=== PATIENT | female | born 1960 | race African-American/Black ===

== ENCOUNTER 2018-03-02 20:30 | Inpatient (IN) | payer OTHER ==
[~2018-03-02] VITALS: Ht 157.5 cm; Wt 73.9 kg
[~2018-03-02 20:30] MED LIST: AMLO10TA80 PO; LINA1TAB PO; LISI40TA4 PO
[2018-03-02 23:05] LABS: BASOPHILS % 0.5 % (0.0-2.0); EOSINOPHILS % 1.6 % (0.0-5.0); HEMATOCRIT. 41.4 % (36.0-48.0); HEMOGLOBIN. 14.1 g/dL (12.0-16.0); LYMPHOCYTES % 41.6 % (20.0-50.0); MEAN CORPUSCULAR HEMOGLOBIN 30.2 pg (28.0-32.0); MEAN CORPUSCULAR VOLUME 88.6 fL (81.0-99.0); MEAN PLATELET VOLUME 9.5 fl (7.4-10.4); MONOCYTES % 10.2 % (2.0-8.0); NEUTROPHILS % 46.1 % (40.0-76.0); PLATELET 354 x1000/uL (130-400); RED BLOOD CELL COUNT 4.67 mill/uL (4.2-5.4); RED CELL DISTRIBUTION WIDTH 13.2 % (11.6-14.6)
[2018-03-02] MEDS ORDERED: ASPIRIN 325MG TABLET PO ONE (23:30)
[2018-03-02 23:41] LABS: CLARITY URINE CLEAR (CLEAR); COLOR URINE YELLOW (YELLOW); KETONES URINE NEGATIVE (NEGATIVE); LEUKOCYTE ESTERASE URINE TRACE (NEGATIVE); NITRITE URINE NEGATIVE (NEGATIVE); OCCULT BLOOD URINE NEGATIVE (NEGATIVE); PH URINE 7.5 (4.5-8.0); PROTEIN URINE NEGATIVE (NEGATIVE); SPECIFIC GRAVITY URINE 1.014 (1.005-1.030)
[2018-03-03] VITALS (7 sets, daily range): BP systolic 117–146; BP diastolic 76–92
[2018-03-03 00:05] LABS: *BENZODIAZEPINES SCREEN URINE NEGATIVE (NEGATIVE)
[2018-03-03 00:06] LABS: *COCAINE SCREEN URINE NEGATIVE (NEGATIVE)
[2018-03-03 00:07] LABS: METHADONE URINE SCREEN NEGATIVE (NEGATIVE); OPIATES URINE SCREEN NEGATIVE (NEGATIVE); PHENCYCLIDINE URINE SCREEN NEGATIVE (NEGATIVE)
[2018-03-03 00:09] LABS: CANNABINOID URINE SCREEN NEGATIVE (NEGATIVE)
[2018-03-03 00:53] LABS: CHLORIDE 110 mEq/L (98-107)
[2018-03-03 00:55] LABS: ETHANOL BLOOD < 10 mg/dL
[2018-03-03] MEDS ORDERED: ACETAMINOPHEN 650MG/20.3ML UDC PO ONE (01:15)
[2018-03-03 01:39] LABS: *AMPHETAMINES SCREEN URINE NEGATIVE (NEGATIVE); *BARBITURATES SCREEN URINE NEGATIVE (NEGATIVE)
[2018-03-03] MEDS ORDERED: IPRATROPIUM/ALBUTEROL 0.5-3(2.5)MG/3ML NEB INH PRN (14:00)
[2018-03-03] MEDS ORDERED: MAGNESIUM/ALUMINUM HYDROXIDE/SIMETHICONE 30ML UDC PO PRN (14:00)
[2018-03-03] MEDS ORDERED: ENOXAPARIN 40MG/0.4ML SYR SUBCUT SCH (14:00)
[2018-03-03] MEDS ORDERED: HYDROCODONE/ACETAMINOPHEN 5/325MG TABLET PO PRN (14:00)
[2018-03-03] MEDS ORDERED: ONDANSETRON HCL 4MG/2ML VIAL IV PRN (14:00)
[2018-03-03] MEDS ORDERED: DIPHENHYDRAMINE 50MG/ML VIAL IV PRN (14:00)
[2018-03-03] MEDS ORDERED: NA PHOS,M-B/NA PHOS,DI-BA ENEMA 118ML PR PRN (14:00)
[2018-03-03] MEDS ORDERED: ACETAMINOPHEN 650MG SUPP PR PRN (14:00)
[2018-03-03] MEDS ORDERED: CLONIDINE 0.1MG TABLET PO PRN (14:00)
[2018-03-03] MEDS ORDERED: AMLODIPINE 10MG TABLET PO SCH (14:30)
[2018-03-03] MEDS ORDERED: DEXTROSE 50% WATER 50ML SYRINGE IV PRN (14:30)
[2018-03-03] MEDS: ACETAMINOPHEN 325MG TABLET PO PRN ×2 (15:04→19:55)
[2018-03-03 16:18] LABS: HEMOGLOBIN 13.3 g/dL (12.0-16.0); MEAN CORPUSCULAR HEMOGLOBIN 30.5 pg (28.0-32.0); MEAN CORPUSCULAR VOLUME 87.1 fL (81.0-99.0); PLATELET 315 x1000/uL (130-400); RED BLOOD CELL COUNT 4.37 mill/uL (4.2-5.4); RED CELL DISTRIBUTION WIDTH 12.7 % (11.6-14.6)
[2018-03-03 16:22] LABS: CHLORIDE 108 mEq/L (98-107)
[2018-03-03 16:26] LABS: D-DIMER 0.37 mg/L FEU (<0.50); INR 1.1; PROTHROMBIN TIME 10.6 sec (9.1-11.1)
[2018-03-03 16:30] LABS: LDL CHOLESTEROL 112 mg/dL (5-100)
[2018-03-03 16:31] LABS: CREATINE KINASE 58 IU/L (26-192); HDL CHOLESTEROL 82 mg/dL (40-59)
[2018-03-03 16:34] LABS: CREATINE KINASE MB FRACTION < 1.0 ng/mL (0.5-3.6)
[2018-03-03] MEDS ORDERED: BLOOD SUGAR DIAGNOSTIC STRIP TEST SCH (17:40)
[2018-03-03] MEDS ORDERED: INSULIN LISPRO 100 UNITS/ML SUBCUT SCH (18:10)
[2018-03-04] MEDS ORDERED: ASPIRIN 81MG EC TABLET PO SCH (09:00)
== END 2018-03-03 20:35 | disposition home or self-care (01) | DRG 305 ==
LOC: ER 20:30 → 7WST 03-03 01:19 → ENRESERV 03-03 07:24
PROVIDERS: ADMIT Internal Medicine; ATTEND Internal Medicine
DX: I16.9 Hypertensive crisis, unspecified (principal); E11.9 Type 2 diabetes mellitus without complications; E78.5 Hyperlipidemia, unspecified; I10 Essential (primary) hypertension; Z96.659 Presence of unspecified artificial knee joint; Z79.899 Other long term (current) drug therapy
CPT/HCPCS: 36415; 70450; 71045; 80048; 80053; 80061; 80305; 81003; 82550; 82553; 82962; 83036; 83880; 84443; 84484; 85025; 85027; 85379; 85610; 93005; 93306; 93880; 93970; 99285; G0482; J1650

== ENCOUNTER 2018-09-24 13:42 | Emergency (ER) | payer BC, OTHER ==
[~2018-09-24] VITALS: Ht 157.5 cm; Wt 72.0 kg
[2018-09-24] MEDS ORDERED: FLUORESCEIN SODIUM 1MG/STRIP OP ONE (22:00)
[2018-09-24] MEDS ORDERED: TETRACAINE 0.5% OPHTH DROPS 4ML OP ONE (22:00)
[2018-09-24] MEDS: DIPHENHYDRAMINE 50MG/ML VIAL IV ONE ×3 (22:15→23:08)
[2018-09-24] MEDS ORDERED: PROCHLORPERAZINE 10MG/2ML VIAL IV ONE (22:15)
[2018-09-24 22:24] LABS: CLARITY URINE CLEAR (CLEAR); COLOR URINE YELLOW (YELLOW); KETONES URINE 1+ (NEGATIVE); LEUKOCYTE ESTERASE URINE NEGATIVE (NEGATIVE); NITRITE URINE NEGATIVE (NEGATIVE); OCCULT BLOOD URINE NEGATIVE (NEGATIVE); PH URINE 6.5 (4.5-8.0); PROTEIN URINE NEGATIVE (NEGATIVE); SPECIFIC GRAVITY URINE 1.013 (1.005-1.030)
[2018-09-24 22:35] LABS: BASOPHILS % 0.7 % (0.0-2.0); EOSINOPHILS % 1.7 % (0.0-5.0); HEMATOCRIT. 44.1 % (36.0-48.0); HEMOGLOBIN. 14.7 g/dL (12.0-16.0); LYMPHOCYTES % 39.1 % (20.0-50.0); MEAN CORPUSCULAR HEMOGLOBIN 29.6 pg (28.0-32.0); MEAN CORPUSCULAR VOLUME 88.8 fL (81.0-99.0); MEAN PLATELET VOLUME 8.2 fl (7.4-10.4); MONOCYTES % 14.2 % (2.0-8.0); NEUTROPHILS % 44.3 % (40.0-76.0); PLATELET 315 x1000/uL (130-400); RED BLOOD CELL COUNT 4.97 mill/uL (4.2-5.4); RED CELL DISTRIBUTION WIDTH 12.9 % (11.6-14.6)
[2018-09-24 22:39] LABS: CHLORIDE 105 mEq/L (98-107)
[2018-09-24 22:48] LABS: PROTHROMBIN TIME 10.5 sec (9.1-11.1)
[2018-09-25 02:13] VITALS: BP 120/71
== END 2018-09-25 02:16 | disposition home or self-care (01) ==
LOC: ER 13:42
DX: R51 Headache (principal); E11.9 Type 2 diabetes mellitus without complications; I10 Essential (primary) hypertension; Z90.710 Acquired absence of both cervix and uterus; Z98.890 Other specified postprocedural states; Z96.659 Presence of unspecified artificial knee joint; Z79.899 Other long term (current) drug therapy
CPT/HCPCS: 36415; 70450; 80053; 81003; 82962; 85025; 85610; 85651; 96374; 99284; J0780; Z7610; J1200